=== PATIENT | female | born 1950 ===

== ENCOUNTER → 2021-02-13 | Outpatient (CLI) | payer MEDICARE ==
[~2021-02-13] MED LIST: IBUP-1221 PO; MULT-449 PO; TURM538C PO
[2021-02-13 11:02] LABS: BASOPHILS % (AUTO) 1 % (0-1); EOSINOPHILS % (AUTO) 2 % (1-7); LYMPHOCYTES % (AUTO) 27 % (22-44); MEAN CORPUSCULAR HEMOGLOBIN 31.5 pg (27.5-34.5); MEAN CORPUSCULAR HGB CONC 33.6 g/dL (33.2-36.2); MEAN PLATELET VOLUME 7.6 fL (7.4-10.4); MONOCYTES % (AUTO) 7 % (2-9); NEUTROPHILS % (AUTO) 64 % (42-75); PLATELET COUNT 305 x10^3/uL (130-400); RED BLOOD COUNT 4.85 x10^6/uL (4.38-5.82); RED CELL DISTRIBUTION WIDTH 14.6 % (9.4-14.8)
[2021-02-13 11:13] LABS: ANION GAP 7 mmol/L (5-15); CALCIUM 9.2 mg/dL (8.5-10.1); CHLORIDE 108 mmol/L (98-107); CREATININE 0.83 mg/dL (0.55-1.02)
== END | disposition home or self-care (01) ==
LOC: STAR 10:04 → EDSEX 10:04
PROVIDERS: ATTEND Orthopaedic Surgery
DX: Z01.818 Encounter for other preprocedural examination (principal); M13.861 Other specified arthritis, right knee; R94.31 Abnormal electrocardiogram [ECG] [EKG]
CPT/HCPCS: 36415; 80048; 85025; 87081; 93005

== ENCOUNTER 2021-02-20 05:27 | Observation (INO) | payer MEDICARE ==
[~2021-02-20] VITALS: Ht 162.6 cm; Wt 105.0 kg
[2021-02-20 06:18] VITALS: BP 145/84
[2021-02-20] MEDS ORDERED: LACTATED RINGERS 1,000 ML IV SCH (06:30)
[2021-02-20] MEDS ORDERED: CHLORHEXIDINE 15 ML UDC PO ONE (06:30)
[2021-02-20] MEDS ORDERED: MIDAZOLAM 1 MG/ML, 2ML ONE (06:31)
[2021-02-20] MEDS ORDERED: FENTANYL PF 250 MCG/5ML ONE ×2 (06:31→07:39)
[2021-02-20] MEDS ORDERED: KETOROLAC 60 MG/2 ML ONE (06:33)
[2021-02-20] MEDS ORDERED: ROPIvacaine/PF 0.2%, 20 ML ONE (06:34)
[2021-02-20] MEDS ORDERED: EPINEPHRINE 1 MG/ML, 1ML ONE (06:34)
[2021-02-20] MEDS ORDERED: TRANEXAMIC ACID 100 MG/ML, 10ML ONE (06:34)
[2021-02-20] MEDS ORDERED: VANCOMYCIN 1,000 MG ONE (06:34)
[2021-02-20] MEDS ORDERED: SODIUM CHLORIDE 0.9% 50 ML ONE (06:34)
[2021-02-20] MEDS ORDERED: METOCLOPRAMIDE 5 MG/ML, 2ML ONE (07:11)
[2021-02-20] MEDS ORDERED: ROCURONIUM 10 MG/ML,10ML ONE (07:11)
[2021-02-20] MEDS ORDERED: DEXAMETHASONE 4 MG/ML, 1ML ONE (07:11)
[2021-02-20] MEDS ORDERED: SUCCINYLCHOLINE 20 MG/ML, 10ML ONE (07:11)
[2021-02-20] MEDS ORDERED: LIDOCAINE 1%, 20ML ONE (07:11)
[2021-02-20] MEDS ORDERED: ONDANSETRON 2MG/ML, 2ML ONE (07:11)
[2021-02-20] MEDS ORDERED: PROPOFOL 50 ML ONE ×2 (07:20→07:49)
[2021-02-20] MEDS ORDERED: hydrALAzine 20 MG/ML, 1ML IV PRN (08:00)
[2021-02-20] MEDS ORDERED: MEPERIDINE/PF 25MG/0.5ML IVPush PRN (08:00)
[2021-02-20] MEDS ORDERED: HYDROmorphone 1 MG/ML, 1ML INJ IVPush PRN (08:00)
[2021-02-20] MEDS ORDERED: LORazepam 2 MG/ML, 1ML IVPush PRN (08:00)
[2021-02-20] MEDS ORDERED: ACETAMINOPHEN 325 MG TABLET PO PRN (08:00)
[2021-02-20] MEDS ORDERED: EPHEDRINE 50 MG/ML, 1ML IVPush PRN (08:00)
[2021-02-20] MEDS ORDERED: LABETALOL 5MG/ML, 20ML IV PRN (08:00)
[2021-02-20] MEDS ORDERED: METHOCARBAMOL 1,000 MG in DEXTROSE 5% 100 ML IV PRN (08:00)
[2021-02-20] MEDS ORDERED: PROMETHAZINE 25 MG/ML, 1ML IVPush PRN (08:00)
[2021-02-20] MEDS ORDERED: OXYcodone 5 MG/5 ML ORAL.SOL UDC PO PRN (08:00)
[2021-02-20] MEDS ORDERED: ONDANSETRON 2MG/ML, 2ML IVPush PRN (08:00)
[2021-02-20] MEDS ORDERED: HYDROmorphone 1 MG/ML, 1ML INJ ONE (08:05)
[2021-02-20] MEDS ORDERED: DIAZEPAM 5 MG TABLET PO PRN (09:00)
[2021-02-20] MEDS ORDERED: DIPHENHYDRAMINE 50 MG CAPSULE PO PRN (09:00)
[2021-02-20] MEDS ORDERED: HYDROcodone/APAP 5/325 TABLET PO PRN (09:00)
[2021-02-20] MEDS ORDERED: PROMETHAZINE 25 MG/ML, 1ML IM PRN (09:00)
[2021-02-20] MEDS ORDERED: ONDANSETRON 4 MG TABLET PO PRN (09:00)
[2021-02-20] MEDS ORDERED: DEXAMETHASONE 4 MG/ML, 1ML IVPush ONE (09:00)
[2021-02-20] MEDS ORDERED: FENTANYL PF 100 MCG/2ML ONE (09:11)
[2021-02-20] MEDS ORDERED: OXYcodone 5 MG/5 ML ORAL.SOL UDC ONE (09:11)
[2021-02-20] MEDS ORDERED: ACETAMINOPHEN 650 MG/20.3 ML UDC ONE (09:11)
[2021-02-20] MEDS: FENTANYL PF 100 MCG/2ML IV PRN ×2 (09:19→09:28)
[2021-02-20] MEDS ORDERED: TRANEXAMIC ACID 1,000 MG in SODIUM CHLORIDE 0.9% 100 ML IVPB STA (09:49)
[2021-02-20] MEDS ORDERED: CEFAZOLIN PMX 1GM/50ML 50 ML IVPB SCH (11:30)
[2021-02-20 12:12] VITALS: BP 126/78
[2021-02-20] MEDS: DOCUSATE 100 MG CAPSULE PO SCH ×2 (12:54→21:00)
[2021-02-20] MEDS: KETOROLAC 30 MG/1 ML IV SCH ×2 (12:54→20:58)
[2021-02-20] MEDS: CEFAZOLIN PMX 1GM/50ML 50 ML IVPB SCH ×2 (15:58→23:26)
[2021-02-20 18:59] VITALS: BP 134/84
[2021-02-20] MEDS: OXYcodone 5 MG/5 ML ORAL.SOL UDC PO PRN (20:58)
[2021-02-20] MEDS: HYDROmorphone 1 MG/ML, 1ML INJ IVPush PRN (22:59)
[2021-02-21 00:57] VITALS: BP 100/64
[2021-02-21] MEDS: OXYcodone 5 MG/5 ML ORAL.SOL UDC PO PRN ×3 (01:05→11:47)
[2021-02-21] MEDS: HYDROmorphone 1 MG/ML, 1ML INJ IVPush PRN (02:19)
[2021-02-21 04:10] VITALS: BP 103/72
[2021-02-21] MEDS: KETOROLAC 30 MG/1 ML IV SCH (05:17)
[2021-02-21] MEDS ORDERED: DEXAMETHASONE 4 MG/ML, 1ML IVPush ONE (06:00)
[2021-02-21] MEDS ORDERED: ASPIRIN 81 MG TABLET EC PO SCH ×2 (06:00→18:00)
[2021-02-21 07:10] VITALS: BP 126/81
[2021-02-21] MEDS: DOCUSATE 100 MG CAPSULE PO SCH (08:49)
[2021-02-21 12:17] VITALS: BP 139/80
== END 2021-02-21 12:35 | disposition home or self-care (01) ==
LOC: EDSEX → OUT 05:27 → ORIP 08:44 → 4NE 11:15
PROVIDERS: ADMIT Orthopaedic Surgery; ATTEND Orthopaedic Surgery
DX: M17.11 Unilateral primary osteoarthritis, right knee (principal); Z96.651 Presence of right artificial knee joint; Z79.899 Other long term (current) drug therapy
CPT/HCPCS: 27447; 73560; 96365; 96366; 96375; 96376; 97110; 97116; 97161; 97530; C1713; C1776; G0378; J0171; J0330; J0690; J1100; J1170; J1885; J2250; J2405; J2704; J2765; J2795; J2800; J3010; J3490; J7120; J3370